=== PATIENT | male | born 1990 | race Caucasian/White ===

== ENCOUNTER 2021-07-28 22:25 | Emergency (ER) | payer OTHER ==
[~2021-07-28] VITALS: Wt 86.2 kg
[~2021-07-28 22:25] MED LIST: PREDNICOT20 MG PO; TESSALON PERLE200 MG PO; ZITHROMAX Z PA250 MG PO
== END 2021-07-28 23:01 | disposition left against medical advice (07) ==
LOC: ED 22:25
DX: R53.1 Weakness (principal); R11.2 Nausea with vomiting, unspecified; Z53.21 Procedure and treatment not carried out due to patient leaving prior to being seen by health care provider